=== PATIENT | female | born 1945 | race Caucasian/White ===

== ENCOUNTER → 2018-02-10 | Outpatient (CLI) | payer OTHER ==
[~2018-02-10] MED LIST: ACTONEL; ALBIPROI; ALBU90I INH; ALBU90OI6; AMLO10; AMLO10 PO; AMLO5; ATOR20; BENZ100A PO; BRINOPSU; BRINOPSU OD; BUPR75 PO; BUSP15; BUSP5 PO; CARV6.25; CARV6.25 PO; CITA20; CLINDAMYCIN PHO; CLON.2; CLOP75 PO; DIAZ5; DIAZ5 PO; DIPH50; DIPH50 PO; DOCSEN; DORZOPSO; DULO60; ENAL20; ENAL20 PO; FLUSAL2505; FLUSAL2505 IH; FLUSAL5005; FLUT.05NI; FURO20; FURO40; GABA300; HYDACE5 PO; HYDR1TAB94; IBUP600 PO; LIDO5TP TOP; MONT10T; MONT10T PO; MORP30; MORP30 PO; NIFE60ER; NITR.6SL; OMEP20ER; OMEP20ER PO; OXYGEN; PANT40; PIRO20; PRED20 PO; Prednisone20 MG PO; QUETIAPINE FUMA50 MG; RISE35; SENN187; SENNP; TIMDOROPSO; TIOT18; TRAM50; TRAV.004OP; TRAV.004OP OD; TRIHYD253A; TRIHYD253B; TUDORZA PRESS400 MCG; Valium5 MG PO; Ventolin Soln3 ML INH; Zithromax250 MG PO; Zofran Odt4 MG PO
== END ==
LOC: LAB SHORT 13:34 → LAB EV 13:34
DX: R10.12 Left upper quadrant pain (principal)
CPT/HCPCS: 87086

== ENCOUNTER → 2018-09-13 | Outpatient (CLI) | payer OTHER ==
[~2018-09-13] MED LIST changes: +ALPR.5 PO; +Isosorbide Mono30 MG PO; +MOTION RELIEF25 MG PO; +Micro-K10 MEQ; +TIOT18 INH
[2018-09-13 12:48] LABS: BASOPHILS ABSOLUTE AUTO 0.02 K/mm3 (0.00-0.23); BASOPHILS PERCENT AUTO 0 % (0-2); EOSINOPHILS ABSOLUTE AUTO 0.07 K/mm3 (0.00-0.68); EOSINOPHILS PERCENT AUTO 1 % (0-6); Hematocrit 35.2 % (33.0-51.0); Hemoglobin 11.4 g/dL (11.5-16.0); IMMATURE GRAN ABSOLUTE AUTO 0.01 K/mm3 (0.00-0.10); IMMATURE GRAN PERCENT AUTO 0 % (0-1); LYMPHOCYTES PERCENT AUTO 31 % (21-46); MONOCYTES ABSOLUTE AUTO 0.49 K/mm3 (0.16-1.47); MONOCYTES PERCENT AUTO 8 % (4-13); Mean Corpuscular HGB Conc 32.4 g/dL (31.5-36.5); Mean Corpuscular Volume 83 fL (80-100); Mean Platelet Volume 10.6 fL (9.1-12.4); NEUTROPHILS PERCENT AUTO 60 % (41-73); Platelet Count 192 K/mm3 (150-400); RDW Coefficient Variation 14.8 % (11.7-14.2); RDW Standard Deviation 44.6 fL (35.1-46.3); Red Blood Cell Count 4.22 M/mm3 (3.80-5.20); White Blood Cell Count 6.49 K/mm3 (4.00-11.30)
[2018-09-13 12:59] LABS: Alanine Aminotransfer (ALT/SGP 20 U/L (12-78); Albumin, Blood 3.4 g/dL (3.4-5.0); Albumin/Globulin Ratio 0.9 (0.8-1.8); Alk Phos 89 U/L (40-126); Anion Gap 9 mmol/L (6-16); Aspartate Aminotrans (AST/SGOT 13 U/L (12-37); Bilirubin, Total 0.5 mg/dL (0.1-1.0); Blood Urea Nitrogen 11 mg/dL (8-24); Bun/Creatinine Ratio 13.9 (12.0-20.0); CO2, Blood 28 mmol/L (21-32); Calcium, Blood 8.6 mg/dL (8.5-10.1); Chloride, Blood 104 mmol/L (98-108); Creatinine, Blood 0.79 mg/dL (0.40-1.00); Globulin, Blood 3.7 g/dL (2.2-4.0); Glomerular Filtration Rate >60 (60-); Glucose, Blood 93 mg/dL (70-99); Potassium, Blood 3.6 mmol/L (3.5-5.5); Sodium, Blood 141 mmol/L (136-145); Total Protein, Blood 7.1 g/dL (6.4-8.2)
== END | disposition home or self-care (01) ==
LOC: LAB EV 12:45 → LAB SHORT 12:45
PROVIDERS: Physician Assistant
DX: R00.2 Palpitations (principal); R06.02 Shortness of breath
CPT/HCPCS: 80053; 83880; 85025

== ENCOUNTER 2018-09-30 12:20 | Emergency (ER) | payer OTHER ==
[~2018-09-30] VITALS: Ht 157.5 cm; Wt 66.7 kg
[~2018-09-30 12:20] MED LIST changes: -ALPR.5 PO; -Isosorbide Mono30 MG PO; -MOTION RELIEF25 MG PO; -Micro-K10 MEQ; -TIOT18 INH
[2018-09-30 13:01] LABS: BASOPHILS ABSOLUTE AUTO 0.02 K/mm3 (0.00-0.23); BASOPHILS PERCENT AUTO 0 % (0-2); EOSINOPHILS ABSOLUTE AUTO 0.07 K/mm3 (0.00-0.68); EOSINOPHILS PERCENT AUTO 1 % (0-6); Hematocrit 37.7 % (33.0-51.0); Hemoglobin 11.7 g/dL (11.5-16.0); IMMATURE GRAN ABSOLUTE AUTO 0.01 K/mm3 (0.00-0.10); IMMATURE GRAN PERCENT AUTO 0 % (0-1); LYMPHOCYTES ABSOLUTE AUTO 2.29 K/mm3 (0.84-5.20); LYMPHOCYTES PERCENT AUTO 29 % (21-46); MONOCYTES ABSOLUTE AUTO 0.62 K/mm3 (0.16-1.47); MONOCYTES PERCENT AUTO 8 % (4-13); Mean Corpuscular HGB 26.1 pg (26.0-34.0); Mean Corpuscular Volume 84 fL (80-100); Mean Platelet Volume 10.9 fL (9.1-12.4); NEUTROPHILS ABSOLUTE AUTO 4.97 K/mm3 (1.96-9.15); NEUTROPHILS PERCENT AUTO 62 % (41-73); Platelet Count 277 K/mm3 (150-400); RDW Coefficient Variation 14.8 % (11.7-14.2); RDW Standard Deviation 45.1 fL (35.1-46.3); Red Blood Cell Count 4.48 M/mm3 (3.80-5.20); White Blood Cell Count 7.98 K/mm3 (4.00-11.30)
[2018-09-30 13:08] LABS: Alanine Aminotransfer (ALT/SGP 16 U/L (12-78); Albumin, Blood 3.4 g/dL (3.4-5.0); Alk Phos 86 U/L (50-136); Anion Gap 7 mmol/L (6-16); Aspartate Aminotrans (AST/SGOT 14 U/L (12-37); Bilirubin, Total 0.7 mg/dL (0.1-1.0); Blood Urea Nitrogen 22 mg/dL (8-24); Bun/Creatinine Ratio 30.6 (12.0-20.0); CO2, Blood 24 mmol/L (21-32); Calcium, Blood 8.3 mg/dL (8.5-10.1); Chloride, Blood 105 mmol/L (98-108); Creatinine, Blood 0.72 mg/dL (0.40-1.00); Globulin, Blood 3.5 g/dL (2.2-4.0); Glomerular Filtration Rate >60 (60-); Glucose, Blood 121 mg/dL (70-99); Potassium, Blood 4.4 mmol/L (3.5-5.5); Sodium, Blood 136 mmol/L (136-145); Total Protein, Blood 6.9 g/dL (6.4-8.2); Troponin I <0.015 ng/mL (0.000-0.040)
[2018-09-30] MEDS ORDERED: Isosorbide Mono30 MG PO (13:50)
[2018-09-30] MEDS ORDERED: MOTION RELIEF25 MG PO (14:41)
[2018-09-30] MEDS ORDERED: Micro-K10 MEQ (14:42)
[2018-09-30] MEDS ORDERED: TIOT18 INH (14:43)
[2018-09-30] MEDS ORDERED: ALPR.5 PO (14:43)
== END 2018-09-30 14:45 | disposition home or self-care (01) ==
LOC: ER 12:20
PROVIDERS: Physician Assistant
DX: I95.9 Hypotension, unspecified (principal); J44.9 Chronic obstructive pulmonary disease, unspecified; Z88.5 Allergy status to narcotic agent; F17.210 Nicotine dependence, cigarettes, uncomplicated; Z79.899 Other long term (current) drug therapy
CPT/HCPCS: 36415; 71046; 80053; 83880; 84484; 85025; 93005; 93010; 96374; 99284-25; J2405; J7030

== ENCOUNTER → 2018-12-15 | Outpatient (CLI) | payer OTHER ==
[~2018-12-15] MED LIST changes: +ALPR.5 PO; +Isosorbide Mono30 MG PO; +MOTION RELIEF25 MG PO; +Micro-K10 MEQ; +TIOT18 INH
== END | disposition home or self-care (01) ==
LOC: LAB EV 12:00 → LAB SHORT 12:00
DX: N39.0 Urinary tract infection, site not specified (principal)
CPT/HCPCS: 87086

== ENCOUNTER 2019-03-02 12:03 | Observation (INO) | payer OTHER ==
[~2019-03-02] VITALS: Ht 157.5 cm; Wt 72.0 kg
[~2019-03-02 12:03] MED LIST changes: -ATOR20; +ATOR20 PO; +CLON.2 PO; +DULO60 PO; +FURO20 PO; -FURO40; -GABA300; +GABA300 PO; -Isosorbide Mono30 MG PO; -Micro-K10 MEQ; +Micro-K10 MEQ PO; +NIFE30ER PO; -NITR.6SL; +Nitroglycerin0.4 MG SL; -PANT40; +PANT40 PO; -QUETIAPINE FUMA50 MG; +QUETIAPINE FUMA50 MG PO
[2019-03-02 12:28] LABS: BASOPHILS PERCENT AUTO 0 % (0-2); EOSINOPHILS ABSOLUTE AUTO 0.09 K/mm3 (0.00-0.68); EOSINOPHILS PERCENT AUTO 1 % (0-6); Hematocrit 33.9 % (33.0-51.0); Hemoglobin 10.8 g/dL (11.5-16.0); IMMATURE GRAN ABSOLUTE AUTO 0.05 K/mm3 (0.00-0.10); IMMATURE GRAN PERCENT AUTO 0 % (0-1); LYMPHOCYTES ABSOLUTE AUTO 1.88 K/mm3 (0.84-5.20); LYMPHOCYTES PERCENT AUTO 16 % (21-46); MONOCYTES ABSOLUTE AUTO 0.63 K/mm3 (0.16-1.47); MONOCYTES PERCENT AUTO 5 % (4-13); Mean Corpuscular HGB 26.6 pg (26.0-34.0); Mean Corpuscular HGB Conc 31.9 g/dL (31.5-36.5); Mean Corpuscular Volume 84 fL (80-100); Mean Platelet Volume 10.6 fL (9.1-12.4); NEUTROPHILS ABSOLUTE AUTO 8.96 K/mm3 (1.96-9.15); NEUTROPHILS PERCENT AUTO 77 % (41-73); Platelet Count 186 K/mm3 (150-400); RDW Coefficient Variation 17.9 % (11.7-14.2); RDW Standard Deviation 54.4 fL (35.1-46.3); Red Blood Cell Count 4.06 M/mm3 (3.80-5.20); White Blood Cell Count 11.61 K/mm3 (4.00-11.30)
[2019-03-02 12:53] LABS: Troponin I <0.015 ng/mL (0.000-0.040)
[2019-03-02 12:54] LABS: Alanine Aminotransfer (ALT/SGP 20 U/L (12-78); Albumin, Blood 2.8 g/dL (3.4-5.0); Alk Phos 58 U/L (50-136); Anion Gap 5 mmol/L (6-16); Aspartate Aminotrans (AST/SGOT <3 U/L (12-37); Bilirubin, Total 0.5 mg/dL (0.1-1.0); Blood Urea Nitrogen 21 mg/dL (8-24); Bun/Creatinine Ratio 26.2 (12.0-20.0); CO2, Blood 30 mmol/L (21-32); Calcium, Blood 8.1 mg/dL (8.5-10.1); Chloride, Blood 104 mmol/L (98-108); Globulin, Blood 2.7 g/dL (2.2-4.0); Glomerular Filtration Rate >60 (60-); Glucose, Blood 138 mg/dL (70-99); Potassium, Blood 3.6 mmol/L (3.5-5.5); Sodium, Blood 139 mmol/L (136-145); Total Protein, Blood 5.5 g/dL (6.4-8.2)
[2019-03-02] MEDS ORDERED: LISI20 PO (14:08)
[2019-03-02 14:09] LABS: Source, Urine Clean Catch
[2019-03-02] MEDS ORDERED: CLOP75 PO (14:10)
[2019-03-02 14:11] LABS: Blood, Urine Neg (Neg); Glucose Qualitative, Urine Neg (Neg); Ketones, Urine 1+ (Neg); Leukocyte Esterase, Urine 2+ (Neg); Nitrite, Urine Neg (Neg); Protein, Urine 2+ (Neg); Urobilinogen, Urine 2+ (Normal)
[2019-03-02] MEDS ORDERED: SPIR25 PO (14:11)
[2019-03-02] MEDS ORDERED: Neurontin 300300 MG PO (14:14)
[2019-03-02] MEDS ORDERED: BREO ELLIPTA 11 EACH INH (14:26)
[2019-03-02 14:30] LABS: Appearance, Urine Hazy (Clear); Bilirubin, Urine 2+ (Neg); Color, Urine Yellow (P-Yellow)
[2019-03-02 14:34] LABS: Bacteria Few /hpf; Squamous Epithelial Cells Mod /hpf (Few)
[2019-03-02 14:36] LABS: Amorphous Mod (0-Heavy); Calcium Oxalate Crystals Mod /hpf; Hyaline Casts TNTC /lpf (0-2); Mucus Mod (0-Heavy)
[2019-03-02] MEDS ORDERED: PRED10 PO (15:44)
[2019-03-02] MEDS ORDERED: Isosorbide Mono30 MG PO (15:51)
--- NOTE | 2019-03-02 16:15 | NUR ---
REC'D REPORT FROM JAMIE ED RN. PT ARRIVED TO PCU 1 VIA GURNEY. ALERT AND ORIENTED X 4. LUNGS CLEAR, DIMINISHED AT THE BASES, ROOM AIR SATS 97%. SB ON TELEMETRY, HR 48-55, ASYMPTOMATIC. BP STABLE. DENIES DIZZINESS AND N/V. BOWEL TONES X 4, NORMOACTIVE, DENIES NAUSEA AND VOMITING. VOIDS PER BEDSIDE COMMODE. RECEIVED NS 1L IN THE ED. SKIN INTACT. LEFT HAND/WRIST AREA IV SALINE LOCKED. FAMILY AT [facility].
--- NOTE | 2019-03-03 03:00 | NUR ---
LATE ENTRY [id number] ASSUMED CARE OF PATIENT FROM MARBIN RAO. PATIENT A/O, ABLE TO MAKE NEEDS KNOWN. 1P ASSIST TO BATHROOM. WCTM THROUGHOUT THE SHIFT.
[2019-03-03 03:56] LABS: BASOPHILS PERCENT AUTO 0 % (0-2); EOSINOPHILS PERCENT AUTO 0 % (0-6); Hematocrit 34.3 % (33.0-51.0); Hemoglobin 10.8 g/dL (11.5-16.0); IMMATURE GRAN ABSOLUTE AUTO 0.07 K/mm3 (0.00-0.10); IMMATURE GRAN PERCENT AUTO 1 % (0-1); LYMPHOCYTES ABSOLUTE AUTO 1.21 K/mm3 (0.84-5.20); LYMPHOCYTES PERCENT AUTO 13 % (21-46); MONOCYTES ABSOLUTE AUTO 0.49 K/mm3 (0.16-1.47); MONOCYTES PERCENT AUTO 5 % (4-13); Mean Corpuscular HGB 26.6 pg (26.0-34.0); Mean Corpuscular HGB Conc 31.5 g/dL (31.5-36.5); Mean Corpuscular Volume 85 fL (80-100); Mean Platelet Volume 11.1 fL (9.1-12.4); NEUTROPHILS ABSOLUTE AUTO 7.24 K/mm3 (1.96-9.15); NEUTROPHILS PERCENT AUTO 80 % (41-73); Platelet Count 175 K/mm3 (150-400); RDW Coefficient Variation 17.8 % (11.7-14.2); RDW Standard Deviation 54.7 fL (35.1-46.3); Red Blood Cell Count 4.06 M/mm3 (3.80-5.20); White Blood Cell Count 9.01 K/mm3 (4.00-11.30)
[2019-03-03 04:32] LABS: Magnesium, Blood 2.3 mg/dL (1.6-2.4)
[2019-03-03 04:42] LABS: Alanine Aminotransfer (ALT/SGP 16 U/L (12-78); Albumin, Blood 2.8 g/dL (3.4-5.0); Alk Phos 63 U/L (50-136); Anion Gap 3 mmol/L (6-16); Aspartate Aminotrans (AST/SGOT 11 U/L (12-37); Bilirubin, Total 0.5 mg/dL (0.1-1.0); Blood Urea Nitrogen 17 mg/dL (8-24); Bun/Creatinine Ratio 22.1 (12.0-20.0); CO2, Blood 29 mmol/L (21-32); Calcium, Blood 8.5 mg/dL (8.5-10.1); Chloride, Blood 105 mmol/L (98-108); Creatinine, Blood 0.77 mg/dL (0.40-1.00); Globulin, Blood 2.9 g/dL (2.2-4.0); Glomerular Filtration Rate >60 (60-); Glucose, Blood 163 mg/dL (70-99); Potassium, Blood 4.2 mmol/L (3.5-5.5); Sodium, Blood 137 mmol/L (136-145); Total Protein, Blood 5.7 g/dL (6.4-8.2)
--- NOTE | 2019-03-03 04:46 | NUR ---
SHIFT SUMMARY A/O, ABLE TO MAKE NEEDS KNOWN. COOPERATIVE WITH CARE. ANSWERS QUESTIONS APPROPRIATELY. UP WITH SBA TO BATHROOM; GAIT APPEARS STEADY. HAS NOT HAD ANY C/O DIZZINESS. NO C/O PAIN/DISCOMFORT. APPEARED TO REST FOR A SHORT TIME DURING THE EARLY HOURS. NO ACUTE CHANGES OVERNIGHT. HYERPTENSIVE THIS AM; ALL OTHER VS WNL. AFEBRILE. BED IN LOWEST POSITON. CALL LIGHT AND BELONGINGS WITHIN REACH. WCTM. REPORT TO ONCOMING RN.
--- NOTE | 2019-03-03 08:15 | NUR ---
INITIAL ASSESSMENT: PT IS SITTING UP IN BED VISITING WITH FAMILY. PT IS ALERT AND OX3. PT DENIES REPORTS SHE IS STARTING TO GET A "LITTLE BIT OF A HEADACHE." PT RATES THIS AT A 3/10. HRR, SINUS LIDIA AT 56 PER TELEMETRY. LS DIM T/O. BIOX WNL ON RA. PT HAS DRY NPC, PT WAS PREVIOUSLY A PACK A DAY SMOKER. NICOTINE PATCH IN PLACE. BT+. PPP. BP HIGH, DR. BAUMAN IS AT ROOM-NOTIFIED, SEE NEW ORDERS. OTHER VSS. PT DENIES OTHER NEEDS AT THIS TIME. CALL LIGHT IN REACH, WILL CONTINUE TO MONTIOR.
--- NOTE | 2019-03-03 10:34 | NUR ---
PT'S HEADACHE IS DOING BETTER. SHE HAS BEEN AMBULATING IN THE HALLS WITHOUT DIZZINESS OR FAINTING. PT WAS ABLE TO TAKE A SHOWER AND STATES SHE IS FEELING BETTER.
--- NOTE | 2019-03-03 12:00 | NUR ---
PT IS RESTING COMFORTABLY IN BED WATCHING TV. BP STILL A LITTLE HIGH, MD NOTIFIED. SEE NEW ORDERS. REPORT GIVEN TO SARIAH ZAZUETA.
--- NOTE | 2019-03-03 12:39 | NUR ---
ASSUMED CARE OF PATIENT AT THIS TIME. NO CHANGES IN PREVIOUS TOXICOLOGY TEACHER. BP REMAINS ELEVATED BUT SLIGHTLY IMPROVED. SECOND DOSE OF LISINOPRIL ADMINISTERED PER ORDER AND WILL REASSESS FOR EFFECTIVENESS.
--- NOTE | 2019-03-03 13:38 | NUR ---
BP REMAINS ELEVATED. NOTIFIED DR BAUMAN WHO WILL PLACE NEW ORDERS.
[2019-03-03] MEDS ORDERED: NICO21TP TOP (17:15)
--- NOTE | 2019-03-03 17:40 | NUR ---
DICUSSED DISCHARGE INSTRUCTIONS WITH PATIENT AND DAUGHTER. PATIENT REPORTS NO CONCERNS OR QUESTIONS.
== END 2019-03-03 17:56 | disposition home or self-care (01) ==
LOC: ER 12:03 → PCU 12:04 → ER 13:40 → PCU 13:40
PROVIDERS: Emergency Medicine; ADMIT Student in an Organized Health Care Education/Training Program
DX: I95.2 Hypotension due to drugs (principal); R00.1 Bradycardia, unspecified; T50.905A Adverse effect of unspecified drugs, medicaments and biological substances, initial encounter; D72.829 Elevated white blood cell count, unspecified; I10 Essential (primary) hypertension; J44.9 Chronic obstructive pulmonary disease, unspecified; E78.5 Hyperlipidemia, unspecified; G47.33 Obstructive sleep apnea (adult) (pediatric); F17.200 Nicotine dependence, unspecified, uncomplicated; Z88.5 Allergy status to narcotic agent; Z88.8 Allergy status to other drugs, medicaments and biological substances; Z79.899 Other long term (current) drug therapy; Z79.52 Long term (current) use of systemic steroids
CPT/HCPCS: 36415; 80053; 81001; 83735; 84145; 84484; 85025; 87086; 93005; 93010; 94640; 94760; 99285-25; A9270; G0378; J1650; J2920; J7030

== ENCOUNTER → 2019-08-09 | Outpatient (CLI) | payer OTHER ==
[~2019-08-09] MED LIST changes: +BREO ELLIPTA 11 EACH INH; +Isosorbide Mono30 MG PO; +LISI20 PO; +NICO21TP TOP; +Neurontin 300300 MG PO; +PRED10 PO; +SPIR25 PO
== END ==
LOC: LAB EV 13:08 → LAB SHORT 13:08
DX: N39.0 Urinary tract infection, site not specified (principal)
CPT/HCPCS: 87086

== ENCOUNTER 2019-11-18 12:32 | Emergency (ER) | payer OTHER ==
[~2019-11-18] VITALS: Ht 157.5 cm; Wt 69.0 kg
[2019-11-18 13:16] LABS: BASOPHILS ABSOLUTE AUTO 0.03 K/mm3 (0.00-0.23); BASOPHILS PERCENT AUTO 0 % (0-2); EOSINOPHILS PERCENT AUTO 1 % (0-6); Hematocrit 44.7 % (33.0-51.0); Hemoglobin 14.3 g/dL (11.5-16.0); IMMATURE GRAN ABSOLUTE AUTO 0.02 K/mm3 (0.00-0.10); IMMATURE GRAN PERCENT AUTO 0 % (0-1); LYMPHOCYTES ABSOLUTE AUTO 2.38 K/mm3 (0.84-5.20); LYMPHOCYTES PERCENT AUTO 27 % (21-46); MONOCYTES ABSOLUTE AUTO 0.65 K/mm3 (0.16-1.47); MONOCYTES PERCENT AUTO 7 % (4-13); Mean Corpuscular Volume 85 fL (80-100); Mean Platelet Volume 10.8 fL (9.1-12.4); NEUTROPHILS ABSOLUTE AUTO 5.58 K/mm3 (1.96-9.15); NEUTROPHILS PERCENT AUTO 64 % (41-73); Platelet Count 238 K/mm3 (150-400); RDW Coefficient Variation 14.6 % (11.7-14.2); Red Blood Cell Count 5.29 M/mm3 (3.80-5.20); White Blood Cell Count 8.76 K/mm3 (4.00-11.30)
[2019-11-18 13:27] LABS: Troponin I <0.015 ng/mL (0.000-0.040)
[2019-11-18 13:28] LABS: Alanine Aminotransfer (ALT/SGP 30 U/L (12-78); Albumin, Blood 3.3 g/dL (3.4-5.0); Albumin/Globulin Ratio 0.8 (0.8-1.8); Alk Phos 101 U/L (50-136); Anion Gap 6 mmol/L (6-16); Aspartate Aminotrans (AST/SGOT 17 U/L (12-37); Bilirubin, Total 0.5 mg/dL (0.1-1.0); Blood Urea Nitrogen 19 mg/dL (8-24); Bun/Creatinine Ratio 23.9 (12.0-20.0); CO2, Blood 26 mmol/L (21-32); Chloride, Blood 107 mmol/L (98-108); Creatinine, Blood 0.79 mg/dL (0.40-1.00); Globulin, Blood 3.9 g/dL (2.2-4.0); Glomerular Filtration Rate >60 (60-); Glucose, Blood 89 mg/dL (70-99); Potassium, Blood 4.1 mmol/L (3.5-5.5); Sodium, Blood 139 mmol/L (136-145); Total Protein, Blood 7.2 g/dL (6.4-8.2)
[2019-11-18] MEDS ORDERED: POTCHL20ER PO (13:29)
[2019-11-18] MEDS ORDERED: Catapres0.2 MG PO (13:31)
[2019-11-18] MEDS ORDERED: HYDCHL25 PO (13:31)
[2019-11-18] MEDS ORDERED: GABA300 PO (13:31)
[2019-11-18] MEDS ORDERED: CARV25 PO (13:32)
[2019-11-18] MEDS ORDERED: Aspirin EC81 MG PO (14:02)
== END 2019-11-18 16:51 | disposition home or self-care (01) ==
LOC: ER 12:32
PROVIDERS: Emergency Medicine
DX: I10 Essential (primary) hypertension (principal); I48.91 Unspecified atrial fibrillation; R51 Headache; M19.90 Unspecified osteoarthritis, unspecified site; M79.7 Fibromyalgia; E78.5 Hyperlipidemia, unspecified; I73.9 Peripheral vascular disease, unspecified; J44.9 Chronic obstructive pulmonary disease, unspecified; G47.30 Sleep apnea, unspecified; Z88.5 Allergy status to narcotic agent; Z88.8 Allergy status to other drugs, medicaments and biological substances; Z79.51 Long term (current) use of inhaled steroids; Z79.899 Other long term (current) drug therapy; F17.200 Nicotine dependence, unspecified, uncomplicated
CPT/HCPCS: 36415; 70450; 80053; 83735; 84484; 85025; 93005; 93010; 99284-25

== ENCOUNTER 2020-12-17 18:37 | Inpatient (IN) | payer OTHER ==
[~2020-12-17] VITALS: Ht 157.5 cm; Wt 70.0 kg
[~2020-12-17 18:37] MED LIST changes: -ATOR20 PO; +Aspirin EC81 MG PO; -DULO60 PO; +HYDCHL25 PO
[2020-12-17 19:18] LABS: BASOPHILS ABSOLUTE AUTO 0.01 K/mm3 (0.00-0.23); BASOPHILS PERCENT AUTO 0 % (0-2); EOSINOPHILS ABSOLUTE AUTO 0.07 K/mm3 (0.00-0.68); EOSINOPHILS PERCENT AUTO 1 % (0-6); IMMATURE GRAN ABSOLUTE AUTO 0.05 K/mm3 (0.00-0.10); IMMATURE GRAN PERCENT AUTO 1 % (0-1); LYMPHOCYTES ABSOLUTE AUTO 2.77 K/mm3 (0.84-5.20); LYMPHOCYTES PERCENT AUTO 28 % (21-46); MONOCYTES PERCENT AUTO 10 % (4-13); Mean Corpuscular HGB 24.3 pg (26.0-34.0); Mean Corpuscular Volume 81 fL (80-100); Mean Platelet Volume 10.5 fL (9.1-12.4); NEUTROPHILS ABSOLUTE AUTO 6.03 K/mm3 (1.96-9.15); NEUTROPHILS PERCENT AUTO 61 % (41-73); NRBC ABSOLUTE 0.28 K/mm3 (0.00-0.02); NRBC Auto 2.8 /100 WBC (0.0-0.2); Platelet Count 283 K/mm3 (150-400); RDW Coefficient Variation 19.6 % (11.7-14.2); RDW Standard Deviation 56.9 fL (35.1-46.3); Red Blood Cell Count 1.73 M/mm3 (3.80-5.20); White Blood Cell Count 9.93 K/mm3 (4.00-11.30)
[2020-12-17 19:29] LABS: Alanine Aminotransfer (ALT/SGP 19 U/L (12-78); Albumin, Blood 2.7 g/dL (3.4-5.0); Albumin/Globulin Ratio 0.9 (0.8-1.8); Alk Phos 95 U/L (50-136); Anion Gap 5 mmol/L (6-16); Aspartate Aminotrans (AST/SGOT 16 U/L (12-37); Bilirubin, Total 0.4 mg/dL (0.1-1.0); Blood Urea Nitrogen 46 mg/dL (8-24); Bun/Creatinine Ratio 52.3 (12.0-20.0); CO2, Blood 25 mmol/L (21-32); Calcium, Blood 8.7 mg/dL (8.5-10.1); Chloride, Blood 106 mmol/L (98-108); Creatinine, Blood 0.88 mg/dL (0.40-1.00); Globulin, Blood 3.1 g/dL (2.2-4.0); Glomerular Filtration Rate >60 (60-); Glucose, Blood 94 mg/dL (70-99); Potassium, Blood 4.7 mmol/L (3.5-5.5); Sodium, Blood 136 mmol/L (136-145); Total Protein, Blood 5.8 g/dL (6.4-8.2)
[2020-12-17 19:30] LABS: Hemoglobin 4.2 g/dL (11.5-16.0)
[2020-12-17] MEDS ORDERED: HYDR100 PO (21:34)
[2020-12-17] MEDS ORDERED: DULO60 PO (21:52)
[2020-12-17] MEDS ORDERED: GABA300 PO ×2 (21:52→21:53)
[2020-12-17] MEDS ORDERED: ALEN70 PO (21:53)
[2020-12-17] MEDS ORDERED: XARELTO20 MG PO (21:54)
[2020-12-17] MEDS ORDERED: POTA10T PO (21:54)
[2020-12-17] MEDS ORDERED: ATOR20 PO (21:54)
[2020-12-17] MEDS ORDERED: DYAZIDE 37.5-21 EACH PO (21:55)
[2020-12-17] MEDS ORDERED: Buspirone HCl15 MG PO (21:55)
[2020-12-17] MEDS ORDERED: Catapres0.2 MG PO (21:56)
[2020-12-17] MEDS ORDERED: Amlodipine Bes2.5 MG PO (21:56)
[2020-12-17] MEDS ORDERED: CARV25 PO (21:57)
[2020-12-17] MEDS ORDERED: Ventolin/Prove6.7 GM INH (22:00)
[2020-12-17] MEDS ORDERED: BREO ELLIPTA 11 EAC1 INH (22:00)
[2020-12-17 22:52] LABS: Source, Urine Voided
[2020-12-17 22:59] LABS: Bilirubin, Urine Neg (Neg); Blood, Urine 1+ (Neg); Glucose Qualitative, Urine Neg (Neg); Ketones, Urine Neg (Neg); Leukocyte Esterase, Urine 2+ (Neg); Nitrite, Urine Neg (Neg); Protein, Urine Neg (Neg); Urobilinogen, Urine NORM (Normal)
[2020-12-17 23:04] LABS: Appearance, Urine Clear (Clear); Color, Urine Yellow (P-Yellow)
[2020-12-17 23:05] LABS: Bacteria Many /hpf; Red Blood Cells, Urine 0-2 /hpf (0-2); Squamous Epithelial Cells Few /hpf (Few)
[2020-12-18 00:13] LABS: Hematocrit 15.9 % (33.0-51.0); Hemoglobin 4.8 g/dL (11.5-16.0)
[2020-12-18 06:06] LABS: BASOPHILS ABSOLUTE AUTO 0.03 K/mm3 (0.00-0.23); BASOPHILS PERCENT AUTO 0 % (0-2); EOSINOPHILS ABSOLUTE AUTO 0.09 K/mm3 (0.00-0.68); EOSINOPHILS PERCENT AUTO 1 % (0-6); Hematocrit 21.1 % (33.0-51.0); Hemoglobin 6.7 g/dL (11.5-16.0); IMMATURE GRAN ABSOLUTE AUTO 0.05 K/mm3 (0.00-0.10); IMMATURE GRAN PERCENT AUTO 1 % (0-1); LYMPHOCYTES ABSOLUTE AUTO 2.38 K/mm3 (0.84-5.20); LYMPHOCYTES PERCENT AUTO 28 % (21-46); MONOCYTES ABSOLUTE AUTO 0.85 K/mm3 (0.16-1.47); MONOCYTES PERCENT AUTO 10 % (4-13); Mean Corpuscular HGB Conc 31.8 g/dL (31.5-36.5); Mean Corpuscular Volume 82 fL (80-100); Mean Platelet Volume 10.2 fL (9.1-12.4); NEUTROPHILS ABSOLUTE AUTO 5.13 K/mm3 (1.96-9.15); NEUTROPHILS PERCENT AUTO 60 % (41-73); NRBC ABSOLUTE 0.23 K/mm3 (0.00-0.02); NRBC Auto 2.7 /100 WBC (0.0-0.2); Platelet Count 248 K/mm3 (150-400); RDW Coefficient Variation 17.9 % (11.7-14.2); RDW Standard Deviation 53.8 fL (35.1-46.3); Red Blood Cell Count 2.58 M/mm3 (3.80-5.20); White Blood Cell Count 8.53 K/mm3 (4.00-11.30)
[2020-12-18 06:28] LABS: Alanine Aminotransfer (ALT/SGP 20 U/L (12-78); Albumin, Blood 2.7 g/dL (3.4-5.0); Albumin/Globulin Ratio 0.8 (0.8-1.8); Alk Phos 91 U/L (50-136); Anion Gap 5 mmol/L (6-16); Aspartate Aminotrans (AST/SGOT 13 U/L (12-37); Bilirubin, Total 0.7 mg/dL (0.1-1.0); Blood Urea Nitrogen 41 mg/dL (8-24); Bun/Creatinine Ratio 48.1 (12.0-20.0); CO2, Blood 25 mmol/L (21-32); Calcium, Blood 8.3 mg/dL (8.5-10.1); Chloride, Blood 108 mmol/L (98-108); Creatinine, Blood 0.85 mg/dL (0.40-1.00); Globulin, Blood 3.2 g/dL (2.2-4.0); Glomerular Filtration Rate >60 (60-); Glucose, Blood 93 mg/dL (70-99); Potassium, Blood 4.1 mmol/L (3.5-5.5); Sodium, Blood 138 mmol/L (136-145); Total Protein, Blood 5.9 g/dL (6.4-8.2)
[2020-12-18 17:11] LABS: Hematocrit 25.1 % (33.0-51.0)
[2020-12-19 08:42] LABS: Influenza A, PCR NEGATIVE (NEGATIVE); Influenza B, PCR NEGATIVE (NEGATIVE); Resp Syncytial Virus, PCR NEGATIVE (NEGATIVE); SARS-Cov-2 (COVID-19) PCR, MMC NEGATIVE (NEGATIVE)
[2020-12-19 12:43] LABS: Hematocrit 25.9 % (33.0-51.0); Hemoglobin 8.2 g/dL (11.5-16.0)
[2020-12-20] MEDS ORDERED: Seroquel Xr50 MG PO (14:28)
[2020-12-20] MEDS ORDERED: PANT40 PO (14:28)
== END 2020-12-20 15:15 | disposition home or self-care (01) | DRG 378 ==
LOC: ER 18:37 → PCU 18:38
PROVIDERS: Emergency Medicine; Internal Medicine; Internal Medicine Gastroenterology; ADMIT Internal Medicine
PROC: 30233N1 Transfusion of Nonautologous Red Blood Cells into Peripheral Vein, Percutaneous Approach (ICD-10-PCS; principal; 2020-12-17)
PROC: 0W3P8ZZ Control Bleeding in Gastrointestinal Tract, Via Natural or Artificial Opening Endoscopic (ICD-10-PCS; 2020-12-19)
DX: K31.811 Angiodysplasia of stomach and duodenum with bleeding (principal); D62 Acute posthemorrhagic anemia; I10 Essential (primary) hypertension; M19.90 Unspecified osteoarthritis, unspecified site; M79.7 Fibromyalgia; Z66 Do not resuscitate; I73.9 Peripheral vascular disease, unspecified; J44.9 Chronic obstructive pulmonary disease, unspecified; E78.5 Hyperlipidemia, unspecified; K21.9 Gastro-esophageal reflux disease without esophagitis; I25.10 Atherosclerotic heart disease of native coronary artery without angina pectoris; K58.2 Mixed irritable bowel syndrome; G47.33 Obstructive sleep apnea (adult) (pediatric); I48.91 Unspecified atrial fibrillation; G62.9 Polyneuropathy, unspecified; G89.29 Other chronic pain; F41.8 Other specified anxiety disorders; J30.9 Allergic rhinitis, unspecified; M81.0 Age-related osteoporosis without current pathological fracture; M54.9 Dorsalgia, unspecified; H40.9 Unspecified glaucoma; Z88.6 Allergy status to analgesic agent; Z88.5 Allergy status to narcotic agent; Z88.8 Allergy status to other drugs, medicaments and biological substances; Z90.49 Acquired absence of other specified parts of digestive tract; Z98.890 Other specified postprocedural states; Z90.710 Acquired absence of both cervix and uterus; Z87.891 Personal history of nicotine dependence; Z95.820 Peripheral vascular angioplasty status with implants and grafts; Z98.41 Cataract extraction status, right eye; Z79.82 Long term (current) use of aspirin; Z79.899 Other long term (current) drug therapy; Z79.01 Long term (current) use of anticoagulants; Z87.11 Personal history of peptic ulcer disease; Z86.16 Personal history of COVID-19; Z79.83 Long term (current) use of bisphosphonates
CPT/HCPCS: 0241U; 36415; 36430; 74177; 80053; 81001; 85014; 85018; 85025; 85730; 86850; 86900; 86901; 86923; 93005; 93010; 93975; 94640; 94760; 96365-59; 96375; 96376; 99285-25; A9270; A9270-GY; C9113; G0378; J2001; J2250; J2270; J2405; J2704; J3010; J7030; J7040; J7120; P9016; Q9967

== ENCOUNTER 2021-01-15 15:27 | Inpatient (IN) | payer OTHER, MEDICARE ==
[~2021-01-15] VITALS: Ht 157.5 cm; Wt 77.3 kg
[~2021-01-15 15:27] MED LIST changes: +ALEN70 PO; +ATOR20 PO; +Amlodipine Bes2.5 MG PO; +BREO ELLIPTA 11 EAC1 INH; +Buspirone HCl15 MG PO; +CARV25 PO; +Catapres0.2 MG PO; +DULO60 PO; +DYAZIDE 37.5-21 EACH PO; +HYDR100 PO; +POTA10T PO; +Seroquel Xr50 MG PO; +Ventolin/Prove6.7 GM INH; +XARELTO20 MG PO
[2021-01-15 18:20] LABS: BASOPHILS ABSOLUTE AUTO 0.02 K/mm3 (0.00-0.23); BASOPHILS PERCENT AUTO 0 % (0-2); EOSINOPHILS ABSOLUTE AUTO 0.09 K/mm3 (0.00-0.68); EOSINOPHILS PERCENT AUTO 1 % (0-6); Hematocrit 19.6 % (33.0-51.0); IMMATURE GRAN ABSOLUTE AUTO 0.02 K/mm3 (0.00-0.10); IMMATURE GRAN PERCENT AUTO 0 % (0-1); LYMPHOCYTES ABSOLUTE AUTO 1.99 K/mm3 (0.84-5.20); LYMPHOCYTES PERCENT AUTO 27 % (21-46); MONOCYTES ABSOLUTE AUTO 0.92 K/mm3 (0.16-1.47); MONOCYTES PERCENT AUTO 13 % (4-13); Mean Corpuscular HGB 21.2 pg (26.0-34.0); Mean Corpuscular HGB Conc 29.1 g/dL (31.5-36.5); Mean Corpuscular Volume 73 fL (80-100); Mean Platelet Volume 9.7 fL (9.1-12.4); NEUTROPHILS ABSOLUTE AUTO 4.34 K/mm3 (1.96-9.15); NEUTROPHILS PERCENT AUTO 59 % (41-73); NRBC ABSOLUTE 0.08 K/mm3 (0.00-0.02); NRBC Auto 1.1 /100 WBC (0.0-0.2); Platelet Count 306 K/mm3 (150-400); RDW Coefficient Variation 22.4 % (11.7-14.2); RDW Standard Deviation 58.4 fL (35.1-46.3); Red Blood Cell Count 2.69 M/mm3 (3.80-5.20); White Blood Cell Count 7.38 K/mm3 (4.00-11.30)
--- NOTE | 2021-01-15 18:25 | NUR ---
SHIFT SUMMARY PATIENT DIRECT ADMIT MID AFTERNOON. PATIENT TO RECEIVE 1 UNIT PRBC, AWAITING LAB. PATIENT ALERT AND ORIENTED, TRANSFERED TO THE BED FROM WHEELCHAIR WITH MINIMAL ASSIST. PATIENT ABLE TO PROVIDE MEDICAL HISTORY. PATIENT'S DAUGHTER IN THE ROOM FOR ADMISSION. PATIENT CURRENTLY SITTING UP IN BED WATCHING TELEVISION, NO NEEDS AT THIS TIME.
[2021-01-15 18:39] LABS: RETICULOCYTE COUNT PERCENT 2.43 % (0.50-2.50)
[2021-01-15 18:40] LABS: Hemoglobin 5.7 g/dL (11.5-16.0)
[2021-01-15 18:41] LABS: Percent Saturation 1.8 % (15.0-50.0)
[2021-01-15 22:53] LABS: Influenza A, PCR NEGATIVE (NEGATIVE); Influenza B, PCR NEGATIVE (NEGATIVE); Resp Syncytial Virus, PCR NEGATIVE (NEGATIVE); SARS-Cov-2 (COVID-19) PCR, MMC NEGATIVE (NEGATIVE)
[2021-01-16 05:14] LABS: BASOPHILS ABSOLUTE AUTO 0.03 K/mm3 (0.00-0.23); BASOPHILS PERCENT AUTO 0 % (0-2); EOSINOPHILS ABSOLUTE AUTO 0.08 K/mm3 (0.00-0.68); EOSINOPHILS PERCENT AUTO 1 % (0-6); Hematocrit 27.1 % (33.0-51.0); Hemoglobin 8.2 g/dL (11.5-16.0); IMMATURE GRAN ABSOLUTE AUTO 0.03 K/mm3 (0.00-0.10); IMMATURE GRAN PERCENT AUTO 0 % (0-1); LYMPHOCYTES ABSOLUTE AUTO 2.56 K/mm3 (0.84-5.20); LYMPHOCYTES PERCENT AUTO 32 % (21-46); MONOCYTES ABSOLUTE AUTO 0.98 K/mm3 (0.16-1.47); MONOCYTES PERCENT AUTO 12 % (4-13); Mean Corpuscular HGB 22.7 pg (26.0-34.0); Mean Corpuscular HGB Conc 30.3 g/dL (31.5-36.5); Mean Corpuscular Volume 75 fL (80-100); Mean Platelet Volume 10.2 fL (9.1-12.4); NEUTROPHILS ABSOLUTE AUTO 4.45 K/mm3 (1.96-9.15); NEUTROPHILS PERCENT AUTO 55 % (41-73); NRBC ABSOLUTE 0.11 K/mm3 (0.00-0.02); NRBC Auto 1.4 /100 WBC (0.0-0.2); Platelet Count 293 K/mm3 (150-400); RDW Coefficient Variation 20.4 % (11.7-14.2); RDW Standard Deviation 55.1 fL (35.1-46.3); Red Blood Cell Count 3.62 M/mm3 (3.80-5.20); White Blood Cell Count 8.13 K/mm3 (4.00-11.30)
--- NOTE | 2021-01-16 05:18 | NUR ---
SHIFT SUMMARY AOX4. VSS. RECIEVED 2U PRBC FOR HGB @5.7, HAS INCREASED TO 8.2. SLEPT WELL T/O NIGHT. REPORTS OCCASIONAL 7/10 SHARP LUQ ABD PAIN WHICH "TAKES MY BREATH AWAY", STATES REST, DEEP BREATHING & MASSAGING HELP & PAIN SUBSIDED WITHIN [address] CROWELL IN TO SEE PT LAST NIGHT, PLAN TO HAVE ENDOSCOPY THIS AFTERNOON & WILL BE NPO @NOON. CURRENTLY TOLERATING LIQUID DIET. NO EMESIS OR NAUSEA. REPORTS PASSING GAS & HAD BM 01/14/21. LUNGS HAVE EXP WHEEZES IN BASES, DENIES SOB @REST, SPO2 >90% ON RA, STATES SHE WEARS 2L @HS (BASELINE). CALL LIGHT IN REACH & PT ABLE TO MAKE NEEDS KNOWN. WILL MONITOR.
[2021-01-16 05:43] LABS: Anion Gap 6 mmol/L (6-16); Blood Urea Nitrogen 16 mg/dL (8-24); Bun/Creatinine Ratio 21.7 (12.0-20.0); CO2, Blood 27 mmol/L (21-32); Calcium, Blood 8.5 mg/dL (8.5-10.1); Chloride, Blood 104 mmol/L (98-108); Creatinine, Blood 0.74 mg/dL (0.40-1.00); Glomerular Filtration Rate >60 (60-); Glucose, Blood 102 mg/dL (70-99); Magnesium, Blood 2.2 mg/dL (1.6-2.4); Potassium, Blood 4.2 mmol/L (3.5-5.5); Sodium, Blood 137 mmol/L (136-145)
--- NOTE | 2021-01-16 15:30 | NUR ---
Upon receiving an admit referral for spiritual care, I visit patient. Patient tells me about the challenging day she had in that her Marshall, was brought into the hospital and then a couple of hours later she was brought into the hospital. She then talks about the family and how they are being pulled in many directions. She discusses her hopes about being able to do all the tests needed to determine the location of the bleed while in the hospital. She expresses her desire to not be readmitted again. I normalize patient's experience and provide therapeutic listening and prayer. Patietn responds well and shows signs of reduced stress. Spiritual care will remain available to patient and family.
--- NOTE | 2021-01-16 16:00 | NUR ---
PATIENT C/O SOB, IS QUITE VALLADARES. BP 170/95, HR >100, O2 SAT 91% ON RA. ASKED HER IF SHE WERE HAVING THESE SXS AT HOME WOULD SHE USE HER ALBUTEROL INHALER, SHE STATED YES. SPOKE TO DR. SIMMONS BY PHONE TO REPORT THESE SXS AND REQUEST BD PROTOCOL. RECEIVED TELEPHONE ORDER FOR BD PROTOCOL, STAT H/H AND BNP, AND PORT CXR.
--- NOTE | 2021-01-16 16:09 | NUR ---
ADMIT:01/15/21 DISCHARGE: DX: Anemia CC:kwilcox KARSTEN CALL: RESIDENCE: CAREGIVER:Darcy Gudino, Child, Marshall Harris [id number], Spouse / Partner, Yolanda PRYOR , Child, DX: HTN, CAD, CHF, Afib, see list DME: CPAP, O2 and equipment CCM: Referral-2019 HOME HEALTH: none SUMMARY: Admit: 01/15/21 01/16/21- Per chart review with Dr. Altamirano, pt is scheduled to have EGD with Dr. Ruano today. In spiritual care note, it is noted that pt's was also admitted into the hospital on the same day. -theresa
[2021-01-16 16:19] LABS: Hematocrit 26.2 % (33.0-51.0); Hemoglobin 8.2 g/dL (11.5-16.0)
--- NOTE | 2021-01-16 17:17 | NUR ---
WENT TO GET PATIENT FROM MEDICAL FLOOR. PATIENT BECAME VERY SHORT OF BREATH GETTING TO [facility] FROM BED. PLACED ON 02 AND AFTER PATIENT REGAINED BREATH TAKEN TO [facility] AND GIVEN RT TREATMENT . TALKED WITH DR GUARDADO WHO HAS AGREED TO EVALUATE PATIENT.
--- NOTE | 2021-01-16 17:37 | NUR ---
DR GUARDADO HERE TO EVALUATE PATINET AGREES WITH RN THAT PATIENT SHOULD BE DONE WITH ANNESTHESIA INFORMED DR CROWELL TO CALL DR MORA PER M PAPST OR STEAM AND POWER SUPERVISOR.
--- NOTE | 2021-01-16 18:09 | NUR ---
SHIFT SUMMARY: PT AT ENDOSCOPY AT THIS TIME. DENIED PAIN ALL SHIFT. BREATH SOUNDS DIM IN LLL WITH EXP WHEEZES THIS MORNING. RESP THX STATED HE HEARD NO WHEEZING SO BREATHING TREATMENT NOT GIVEN. BNP FOUND TO BE ELEVATED AT 973, H/H STABLE. RECEIVED ORDER FOR LASIX, WILL GIVE WHEN PT RETURNS. WEARS O2 @ 2 L/MIN NC AT HS ONLY. COMPLIANT WITH NPO AFTER NOON TODAY. GETTING UP TO BR WITH SBA ABD HER CANE. DAUGHTER AT BEDSIDE.
--- NOTE | 2021-01-16 19:22 | NUR ---
01/16/211921 Sinan Driscoll See Anesthesia record. Bite Block Placed. Patient to ENDO 1. History, Chart, Medications and Allergies reviewed before start of procedure. MONITOR INTACT WITH CONTINUOUS PULSE OXIMETRY AND INTERMITTENT BP.
--- NOTE | 2021-01-16 20:00 | NUR ---
ASSUMED CARE RECEIVED REPORT FROM MARBIN ANDERSON. PT ARRIVED TO FLOOR FROM [facility] AT 1999, NO ACUTE DISTRESS NOTED. POST-OP VS TAKEN, WNL. PT DENIES FEELINGS OF DIZZINESS, PAIN. LASIX IVP GIVEN ORDERED UPON RETURN TO FLOOR. PT DENIES NEEDS AT THIS TIME. CALL LIGHT, POSSESSIONS IN REACH, BED IN LOW POSITION WITH ALARMS ON.
--- NOTE | 2021-01-17 07:38 | NUR ---
NEWS TECHNICAL DIRECTOR SUMMARY PT RESTING, IN NO ACUTE DISTRESS. VS REVIEWED,WNL. PT COMPLETED PHASE 1 OF BOWEL PREP FOR COLONOSCOPY, STARTED PHASE 2 THIS AM. TOLERATING WELL, CONTINUES TO HAVE BLOOD IN BM'S, BUT APPEARS TO BE CLEARING SOME THIS AM. PT DENIES ABD CRAMPING OR DISCOMFORT. SLEPT ON AND OFF THROUGH THE NIGHT. REPORTS INCREASED EASE OF BREATHING THIS AM S/P LASIX ADMINISTRATION. NO ACUTE NEEDS ASSESSED AT THIS TIME. CALL LIGHT, POSSESSIONS IN REACH, BED IN LOW POSITION. BSC WITHIN REACH. REPORT GIVEN TO MARBIN ANDERSON.
--- NOTE | 2021-01-17 07:54 | NUR ---
SPOKE WITH PT'S DAUGHTER AUBREY BY PHONE, GAVE UPDATE ON PT'S CONDITION AND PLAN FOR TODAY.
--- NOTE | 2021-01-17 09:44 | NUR ---
Echocardiogram performed by Lizbeth Hendricks under my supervision.
[2021-01-17 13:53] LABS: Anion Gap 8 mmol/L (6-16); Blood Urea Nitrogen 10 mg/dL (8-24); CO2, Blood 29 mmol/L (21-32); Calcium, Blood 8.4 mg/dL (8.5-10.1); Chloride, Blood 100 mmol/L (98-108); Creatinine, Blood 0.72 mg/dL (0.40-1.00); Glomerular Filtration Rate >60 (60-); Glucose, Blood 98 mg/dL (70-99); Potassium, Blood 2.7 mmol/L (3.5-5.5); Sodium, Blood 137 mmol/L (136-145)
--- NOTE | 2021-01-17 14:35 | NUR ---
Patient is sitting on the EOB and alert. Patient speaks about the endoscopy she has had and that no bleed was located and that a colonscopy will most likely take place latter in this day. She talks about the family dynamics and her deep delmer in God. I provide pastoral risk reduction counselor and prayer. Patient responds well and voices appreciation for the visit.
--- NOTE | 2021-01-17 14:39 | NUR ---
01/17/21 1438 Jo Atwood History, Chart, Medications and Allergies reviewed before start of procedure.Patient confirms NPO status and agrees with scheduled surgery.MONITOR INTACT WITH CONTINUOUS PULSE OXIMETRY AND INTERMITTENT BP.O2 VIA N/C INTACT THROUGHOUT SEDATION/PROCEDURE. See Anesthesia record.
--- NOTE | 2021-01-17 18:29 | NUR ---
SUMMARY: Admit: /03/04 Colonoscopy scheduled for today @2pm. Dr Altamirano though she would discharge home later today. Patient would prefer to stay the night tonight after procedure.Discussed discharge planning, transition of care call. She has family at home to stay with her. Normally she is independant in all care. Discussed gabe call and schedule 1 week follow up appointment. Left gabe letter for her to take home. No care needs identified during visit. hammad
--- NOTE | 2021-01-17 18:37 | NUR ---
SHIFT SUMMARY: S/P COLONOSCOPY TODAY, TOLERATED WELL. APPETITE GOOD. C/O HEADACHE EARLIER, MEDICATED WITH TYLENOL, PAIN RELIEVED. POTASSIUM 2.7; REPLACED WITH 80 MEQ PO, BUT ASKED PT TO SPLIT THE DOSE OVER A FEW OF HOURS AND TO TAKE WITH FOOD. SHE IS REFUSING ANTICOAGULANTS AT THIS TIME. AMBULATING WITH CANE. LOOKING FORWARD TO D/C TOMORROW.
--- NOTE | 2021-01-18 06:14 | NUR ---
SHIFT SUMMARY LYING ON HER LEFT SIDE FACING THE WINDOW, HAS RESTED WELL THIS SHIFT. STATES THAT SHE CONTINUES TO FEEL BETTER. NO SIGNIFICANT CHANGES THIS SHIFT. PIV REMAINS PATENT, FLUSHING WITH EASE. DENIES PAIN, DISCOMFORT, OR FURTHER NEEDS AT THIS TIME. SAFETY MEASURES IN PLACE. WILL CONTINUE TO MONITOR AND ADDRESS NEEDS THEY ARISE. WILL GIVE HAND OFF TO ONCOMING SHIFT USING SBAR DURING BEDSIDE REPORT.
[2021-01-18 10:16] LABS: BASOPHILS ABSOLUTE AUTO 0.03 K/mm3 (0.00-0.23); BASOPHILS PERCENT AUTO 0 % (0-2); EOSINOPHILS ABSOLUTE AUTO 0.05 K/mm3 (0.00-0.68); EOSINOPHILS PERCENT AUTO 1 % (0-6); Hematocrit 29.8 % (33.0-51.0); IMMATURE GRAN ABSOLUTE AUTO 0.03 K/mm3 (0.00-0.10); IMMATURE GRAN PERCENT AUTO 0 % (0-1); LYMPHOCYTES ABSOLUTE AUTO 1.47 K/mm3 (0.84-5.20); LYMPHOCYTES PERCENT AUTO 20 % (21-46); MONOCYTES ABSOLUTE AUTO 0.94 K/mm3 (0.16-1.47); MONOCYTES PERCENT AUTO 13 % (4-13); Mean Corpuscular HGB 22.6 pg (26.0-34.0); Mean Corpuscular HGB Conc 30.2 g/dL (31.5-36.5); Mean Corpuscular Volume 75 fL (80-100); NEUTROPHILS ABSOLUTE AUTO 4.75 K/mm3 (1.96-9.15); NEUTROPHILS PERCENT AUTO 65 % (41-73); NRBC ABSOLUTE 0.04 K/mm3 (0.00-0.02); NRBC Auto 0.6 /100 WBC (0.0-0.2); Platelet Count 260 K/mm3 (150-400); RDW Coefficient Variation 22.1 % (11.7-14.2); RDW Standard Deviation 59.7 fL (35.1-46.3); Red Blood Cell Count 3.99 M/mm3 (3.80-5.20); White Blood Cell Count 7.27 K/mm3 (4.00-11.30)
[2021-01-18] MEDS ORDERED: Seroquel Xr50 MG PO (14:09)
[2021-01-18 14:23] LABS: Alanine Aminotransfer (ALT/SGP 20 U/L (12-78); Albumin/Globulin Ratio 0.8 (0.8-1.8); Alk Phos 120 U/L (50-136); Anion Gap 4 mmol/L (6-16); Aspartate Aminotrans (AST/SGOT 15 U/L (12-37); Bilirubin, Total 0.7 mg/dL (0.1-1.0); Blood Urea Nitrogen 24 mg/dL (8-24); CO2, Blood 31 mmol/L (21-32); Calcium, Blood 9.4 mg/dL (8.5-10.1); Chloride, Blood 105 mmol/L (98-108); Creatinine, Blood 0.86 mg/dL (0.40-1.00); Globulin, Blood 3.6 g/dL (2.2-4.0); Glomerular Filtration Rate >60 (60-); Glucose, Blood 144 mg/dL (70-99); Potassium, Blood 3.8 mmol/L (3.5-5.5); Sodium, Blood 140 mmol/L (136-145); Total Protein, Blood 6.6 g/dL (6.4-8.2)
--- NOTE | 2021-01-18 15:17 | NUR ---
DUE TO DISCREPANCY IN COMPUTER DISCHARGE PAPERWORK ( ADMIT MEDS WEREN'T RECONCILED WHEN PT ARRIVED), CALLED DR SIMMONS TO CLARIFY DISCHARGE MEDS. HE STATES THAT THE only NEW MEDS PT NEEDS TO BE ON ARE HYDROCHLOROTHIAZIE 25 MG DAILY LISINOPRIL 5MG DAILY EVENING FERROUS SULFATE 325MG BID PROTONIX CHANGED TO 40MG DAILY ALL OTHER MEDS I CALLED AND CANCELED FROM PHARMACY
[2021-01-18] MEDS ORDERED: FERSU300 PO (15:20)
[2021-01-18] MEDS ORDERED: HYDCHL25 PO (15:21)
[2021-01-18] MEDS ORDERED: LISI5 PO (15:21)
--- NOTE | 2021-01-18 16:35 | NUR ---
DISCHARGE SUMMARY DR SIMMONS CAME TO ROOM AROUND 330PM TO DISCUSS DISCHARGE MEDS. PIV REMOVED, PAPERWORK REVIEWED, MEDS FAXED TO [facility]. PCP APPT MADE FOR PT, CARDIOLOGY CALLED, THEY WLL CALL HER WITH APPT TIME AND DATE. SHE KNOWS TO GET HER CBC AND IRON LEVELS DRAWN IN 2 WEEKS. WHEELED DOWN TO HER CAR VIA WC WITH DAUGHTER.
== END 2021-01-18 16:23 | disposition home or self-care (01) | DRG 811 ==
LOC: MEDS 15:27 → ENPENDDIS 01-18 14:25 → MEDS 01-18 16:23
PROVIDERS: Internal Medicine Gastroenterology; ADMIT Internal Medicine
PROC: 30233N1 Transfusion of Nonautologous Red Blood Cells into Peripheral Vein, Percutaneous Approach (ICD-10-PCS; principal; 2021-01-15)
PROC: 0DJ08ZZ Inspection of Upper Intestinal Tract, Via Natural or Artificial Opening Endoscopic (ICD-10-PCS; 2021-01-16)
PROC: 0DBK8ZX Excision of Ascending Colon, Via Natural or Artificial Opening Endoscopic, Diagnostic (ICD-10-PCS; 2021-01-17)
PROC: 0DBN8ZX Excision of Sigmoid Colon, Via Natural or Artificial Opening Endoscopic, Diagnostic (ICD-10-PCS; 2021-01-17)
DX: D62 Acute posthemorrhagic anemia (principal); J96.20 Acute and chronic respiratory failure, unspecified whether with hypoxia or hypercapnia; I77.4 Celiac artery compression syndrome; Q21.1 Atrial septal defect; Z20.822 Contact with and (suspected) exposure to COVID-19; I48.91 Unspecified atrial fibrillation; K21.9 Gastro-esophageal reflux disease without esophagitis; F41.8 Other specified anxiety disorders; G47.33 Obstructive sleep apnea (adult) (pediatric); M81.0 Age-related osteoporosis without current pathological fracture; I10 Essential (primary) hypertension; E78.5 Hyperlipidemia, unspecified; I73.9 Peripheral vascular disease, unspecified; E87.70 Fluid overload, unspecified; K57.30 Diverticulosis of large intestine without perforation or abscess without bleeding; K64.8 Other hemorrhoids; K63.5 Polyp of colon; Z87.891 Personal history of nicotine dependence; Z95.820 Peripheral vascular angioplasty status with implants and grafts; Z99.81 Dependence on supplemental oxygen; Z88.8 Allergy status to other drugs, medicaments and biological substances; Z88.5 Allergy status to narcotic agent; Z86.010 Personal history of colon polyps; Z79.899 Other long term (current) drug therapy; Z79.01 Long term (current) use of anticoagulants; Z79.83 Long term (current) use of bisphosphonates; Z79.51 Long term (current) use of inhaled steroids
CPT/HCPCS: 0241U; 36415; 36430; 71045; 71046; 80048; 80053; 82728; 83540; 83550; 83735; 83880; 84443; 84484; 85014; 85018; 85025; 85045; 85379; 86850; 86900; 86901; 86923; 88305; 93306; 94760; A9270; G0378; J1940; J2704; J7120; P9016

== ENCOUNTER → 2021-08-18 | Outpatient (CLI) | payer OTHER ==
[~2021-08-18] MED LIST changes: +FERSU300 PO; +LISI5 PO
[2021-08-18 16:20] LABS: BASOPHILS ABSOLUTE AUTO 0.02 K/mm3 (0.00-0.23); BASOPHILS PERCENT AUTO 0 % (0-2); EOSINOPHILS ABSOLUTE AUTO 0.06 K/mm3 (0.00-0.68); EOSINOPHILS PERCENT AUTO 1 % (0-6); Hematocrit 44.7 % (33.0-51.0); Hemoglobin 14.7 g/dL (11.5-16.0); IMMATURE GRAN ABSOLUTE AUTO 0.02 K/mm3 (0.00-0.10); IMMATURE GRAN PERCENT AUTO 0 % (0-1); LYMPHOCYTES ABSOLUTE AUTO 1.82 K/mm3 (0.84-5.20); LYMPHOCYTES PERCENT AUTO 24 % (21-46); MONOCYTES ABSOLUTE AUTO 0.71 K/mm3 (0.16-1.47); MONOCYTES PERCENT AUTO 9 % (4-13); Mean Corpuscular HGB 27.3 pg (26.0-34.0); Mean Corpuscular HGB Conc 32.9 g/dL (31.5-36.5); Mean Corpuscular Volume 83 fL (80-100); Mean Platelet Volume 10.2 fL (9.1-12.4); NEUTROPHILS ABSOLUTE AUTO 4.92 K/mm3 (1.96-9.15); NEUTROPHILS PERCENT AUTO 65 % (41-73); Platelet Count 227 K/mm3 (150-400); RDW Coefficient Variation 18.9 % (11.7-14.2); RDW Standard Deviation 55.3 fL (35.1-46.3); Red Blood Cell Count 5.38 M/mm3 (3.80-5.20); White Blood Cell Count 7.55 K/mm3 (4.00-11.30)
[2021-08-18 16:30] LABS: Alanine Aminotransfer (ALT/SGP 32 U/L (12-78); Albumin, Blood 3.5 g/dL (3.4-5.0); Alk Phos 116 U/L (40-126); Anion Gap 9 mmol/L (6-16); Aspartate Aminotrans (AST/SGOT 18 U/L (12-37); Bilirubin, Total 0.9 mg/dL (0.1-1.0); Blood Urea Nitrogen 23 mg/dL (8-24); Bun/Creatinine Ratio 27.4 (12.0-20.0); CO2, Blood 30 mmol/L (21-32); Chloride, Blood 103 mmol/L (98-108); Creatinine, Blood 0.84 mg/dL (0.40-1.00); Globulin, Blood 3.6 g/dL (2.2-4.0); Glomerular Filtration Rate >60 (60-); Glucose, Blood 94 mg/dL (70-99); Potassium, Blood 4.1 mmol/L (3.5-5.5); Sodium, Blood 142 mmol/L (136-145); Total Protein, Blood 7.1 g/dL (6.4-8.2)
== END | disposition home or self-care (01) ==
LOC: LAB SHORT 16:15
PROVIDERS: Physician Assistant Medical
DX: R06.09 Other forms of dyspnea (principal)
CPT/HCPCS: 80053; 85025

== ENCOUNTER → 2021-10-01 | Outpatient (CLI) | payer OTHER | END | disposition home or self-care (01) | LOC: LAB SHORT 14:42 | DX: R32 Unspecified urinary incontinence (principal) | CPT/HCPCS: 87086 ==

== ENCOUNTER 2021-10-23 17:18 | Emergency (ER) | payer OTHER ==
[~2021-10-23] VITALS: Ht 157.5 cm; Wt 65.8 kg
[~2021-10-23 17:18] MED LIST changes: +ASCO500 PO; +CATAPRES0.2 M1 PO; +FLUO10 PO; +FURO40 PO; +Lopressor 50 mg50 MG PO; +Nitrostat0.3 MG SL; +OLME20 PO; +VITAMIN D5000 UNIT PO; +ZINC15
[2021-10-23 18:02] LABS: BASOPHILS ABSOLUTE AUTO 0.02 K/mm3 (0.00-0.23); BASOPHILS PERCENT AUTO 0 % (0-2); EOSINOPHILS ABSOLUTE AUTO 0.09 K/mm3 (0.00-0.68); EOSINOPHILS PERCENT AUTO 1 % (0-6); Hematocrit 46.6 % (33.0-51.0); Hemoglobin 15.1 g/dL (11.5-16.0); IMMATURE GRAN ABSOLUTE AUTO 0.01 K/mm3 (0.00-0.10); IMMATURE GRAN PERCENT AUTO 0 % (0-1); LYMPHOCYTES ABSOLUTE AUTO 2.18 K/mm3 (0.84-5.20); LYMPHOCYTES PERCENT AUTO 32 % (21-46); MONOCYTES ABSOLUTE AUTO 0.55 K/mm3 (0.16-1.47); MONOCYTES PERCENT AUTO 8 % (4-13); Mean Corpuscular HGB 28.1 pg (26.0-34.0); Mean Corpuscular HGB Conc 32.4 g/dL (31.5-36.5); Mean Corpuscular Volume 87 fL (80-100); Mean Platelet Volume 11.1 fL (9.1-12.4); NEUTROPHILS ABSOLUTE AUTO 3.93 K/mm3 (1.96-9.15); NEUTROPHILS PERCENT AUTO 58 % (41-73); Platelet Count 162 K/mm3 (150-400); RDW Coefficient Variation 15.9 % (11.7-14.2); RDW Standard Deviation 50.4 fL (35.1-46.3); Red Blood Cell Count 5.37 M/mm3 (3.80-5.20); White Blood Cell Count 6.78 K/mm3 (4.00-11.30)
[2021-10-23 18:12] LABS: Alanine Aminotransfer (ALT/SGP 23 U/L (12-78); Albumin, Blood 3.6 g/dL (3.4-5.0); Albumin/Globulin Ratio 0.9 (0.8-1.8); Alk Phos 104 U/L (50-136); Anion Gap 2 mmol/L (6-16); Aspartate Aminotrans (AST/SGOT 17 U/L (12-37); Bilirubin, Total 0.6 mg/dL (0.1-1.0); Blood Urea Nitrogen 15 mg/dL (8-24); Bun/Creatinine Ratio 20.1 (12.0-20.0); CO2, Blood 30 mmol/L (21-32); Calcium, Blood 9.1 mg/dL (8.5-10.1); Chloride, Blood 110 mmol/L (98-108); Creatinine, Blood 0.75 mg/dL (0.40-1.00); Globulin, Blood 3.8 g/dL (2.2-4.0); Glomerular Filtration Rate >60 (60-); Glucose, Blood 124 mg/dL (70-99); Potassium, Blood 3.5 mmol/L (3.5-5.5); Sodium, Blood 142 mmol/L (136-145); Total Protein, Blood 7.4 g/dL (6.4-8.2)
== END 2021-10-23 20:34 | disposition home or self-care (01) ==
LOC: ER 17:18
PROVIDERS: Physician Assistant
DX: I10 Essential (primary) hypertension (principal); R07.89 Other chest pain; J44.9 Chronic obstructive pulmonary disease, unspecified; I48.91 Unspecified atrial fibrillation; M19.90 Unspecified osteoarthritis, unspecified site; F17.200 Nicotine dependence, unspecified, uncomplicated; Z88.6 Allergy status to analgesic agent; Z88.5 Allergy status to narcotic agent; Z88.8 Allergy status to other drugs, medicaments and biological substances; Z79.899 Other long term (current) drug therapy
CPT/HCPCS: 36415; 71046; 80053; 84484; 85025; 93005; 93010; 96374; 99285-25; J3010

== ENCOUNTER → 2022-08-27 | Outpatient (CLI) | payer OTHER | END | disposition home or self-care (01) | LOC: LAB SHORT 16:05 | DX: N39.0 Urinary tract infection, site not specified (principal) | CPT/HCPCS: 87086 ==

== ENCOUNTER → 2023-07-01 | Outpatient (CLI) | payer MEDICARE, OTHER | END | disposition home or self-care (01) | LOC: LAB 12:00 → LAB SHORT 12:00 | DX: N39.0 Urinary tract infection, site not specified (principal) | CPT/HCPCS: 87086 ==

== ENCOUNTER 2023-09-09 11:37 | Day surgery (SDC) | payer MEDICARE, OTHER ==
[~2023-09-09] VITALS: Ht 157.5 cm; Wt 67.2 kg
[~2023-09-09 11:37] MED LIST changes: +ALBU90OI INH; +AMLO5 PO; +AZELASTINE137 MCG/06; +DOCU100 PO; +FLONASE ALLERG9.9 M2; +ISOSORBIDE MONO10 MG PO; +K-TAB ER20 ME1; +METO50 PO; +NITR.4SL; +OLMESARTAN MEDO40 MG PO; +PANTOPRAZOLE SO40 M2 PO; +SPIRIVA RESPIMAT4 G3 INH
[2023-09-09] MEDS ORDERED: ALBU2.5V5 (12:03)
[2023-09-09] MEDS ORDERED: BREO ELLIPTA 11 EAC1 IH ×2 (12:04→12:06)
[2023-09-09] MEDS ORDERED: TRAVOPROST2.5 ML (12:07)
[2023-09-09] MEDS ORDERED: CLOP75 PO (12:07)
[2023-09-09] MEDS ORDERED: FERRO-TIME325 MG (12:08)
[2023-09-09] MEDS ORDERED: TIZA4 PO (12:11)
--- NOTE | 2023-09-09 12:37 | NUR ---
09/09/23 [address] PHILLIPS, LAVERNEONEeRba ADMINISTERED IN PREOP.
[2023-09-09 14:33] VITALS: BP 124/74
--- NOTE | 2023-09-09 15:09 | NUR ---
09/09/23 1509 Naya Duggan PT HAS A FIB. HEART RATE TYPICALLY BOUNCES AROUND FROM 20S TO 80S. PT FEELS OK AND IS NOT EXPERIENCING ANY NEGATIVE EFFECTS. STATES NO PAIN, PRESSURE, DIZZINESS, OR SOB.
== END 2023-09-09 15:29 | disposition home or self-care (01) ==
LOC: ORSCSDS 11:37
PROVIDERS: Otolaryngology
PROC: 03BT0ZX Excision of Left Temporal Artery, Open Approach, Diagnostic (ICD-10-PCS; principal; 2023-09-09 13:00)
DX: M31.6 Other giant cell arteritis (principal); I48.91 Unspecified atrial fibrillation; Z79.01 Long term (current) use of anticoagulants
CPT/HCPCS: 88305; 88313; J2250; J7120

== ENCOUNTER 2024-02-24 20:52 | Inpatient (IN) | payer MEDICARE, OTHER ==
[~2024-02-24] VITALS: Ht 157.5 cm; Wt 70.9 kg
[~2024-02-24 20:52] MED LIST changes: +ALBU2.5V5; +BREO ELLIPTA 11 EAC1 IH; +FERRO-TIME325 MG; -K-TAB ER20 ME1; +K-TAB ER20 ME1 PO; +TIZA4 PO; +TRAVOPROST2.5 ML
[2024-02-24] MEDS ORDERED: Toprol Xl50 MG PO (21:20)
[2024-02-24] MEDS ORDERED: GABA300 PO (21:21)
[2024-02-24 21:24] LABS: BASOPHILS ABSOLUTE AUTO 0.04 K/mm3 (0.00-0.23); BASOPHILS PERCENT AUTO 1 % (0-2); EOSINOPHILS PERCENT AUTO 1 % (0-6); Hematocrit 23.8 % (33.0-51.0); Hemoglobin 6.9 g/dL (11.5-16.0); IMMATURE GRAN ABSOLUTE AUTO 0.03 K/mm3 (0.00-0.10); IMMATURE GRAN PERCENT AUTO 0 % (0-1); LYMPHOCYTES ABSOLUTE AUTO 2.12 K/mm3 (0.84-5.20); LYMPHOCYTES PERCENT AUTO 25 % (21-46); MONOCYTES ABSOLUTE AUTO 1.05 K/mm3 (0.16-1.47); MONOCYTES PERCENT AUTO 12 % (4-13); Mean Corpuscular HGB 26.5 pg (26.0-34.0); Mean Corpuscular Volume 92 fL (80-100); Mean Platelet Volume 10.3 fL (9.1-12.4); NEUTROPHILS ABSOLUTE AUTO 5.26 K/mm3 (1.96-9.15); NEUTROPHILS PERCENT AUTO 61 % (41-73); NRBC ABSOLUTE 0.18 K/mm3 (0.00-0.02); NRBC Auto 2.1 /100 WBC (0.0-0.2); Platelet Count 266 K/mm3 (150-400); RDW Coefficient Variation 20.7 % (11.7-14.2); RDW Standard Deviation 65.9 fL (35.1-46.3)
[2024-02-24 21:42] LABS: Albumin, Blood 3.1 g/dL (3.4-5.0); Albumin/Globulin Ratio 0.9 (0.8-1.8); Bilirubin, Total 0.5 mg/dL (0.1-1.0); Bun/Creatinine Ratio 29.5 (12.0-20.0); Calcium, Blood 8.9 mg/dL (8.5-10.1); Creatinine, Blood 0.95 mg/dL (0.40-1.00); Globulin, Blood 3.3 g/dL (2.2-4.0); Potassium, Blood 3.9 mmol/L (3.5-5.5); Total Protein, Blood 6.4 g/dL (6.4-8.2)
[2024-02-24] MEDS ORDERED: Albuterol 2.5 MG/3 ML VIAL INH SCH (21:55)
[2024-02-24] MEDS ORDERED: PredniSONE 20 MG Tab PO ONE (21:55)
[2024-02-24] MEDS ORDERED: NS 1,000 ML IV ONE (22:18)
[2024-02-24] MEDS ORDERED: NS 1,000 ML IV SCH (22:40)
[2024-02-25] VITALS (11 sets, daily range): BP systolic 106–152; BP diastolic 44–92
[2024-02-25] MEDS ORDERED: Acetaminophen 325 MG TABLET PO PRN (00:40)
[2024-02-25] MEDS ORDERED: Furosemide 10 MG / ML 2ML Vial IV ONE (01:00)
--- NOTE | 2024-02-25 01:45 | NUR ---
ASSUMPTION OF CARE PT ARRIVED TO PCU 9 AT APPROXIMATELY 0145 VIA GURNEY, PT SLID TO HOSPITAL BED. SPO2 >93% ON 3L NC, LUNGS WITH EXPIRATORY WHEEZES T/O. SECOND UNIT OF PRBC INFUSING AT 100ML/HR. VSS, AFEBTRILE. ADMISSION HISTORY/ ASSESSMENT COMPLETED. PT IS NOW RESTING COMFORTABLY, CALL LIGHT WITHIN REACH, BREATHING EVEN AND UNLABORED.
[2024-02-25] MEDS ORDERED: ASPI81CH PO (02:08)
[2024-02-25] MEDS ORDERED: Ipratropium/Albuterol SulF 2.5-0.5MG/3 ML Amp INH SCH (03:20)
[2024-02-25 05:55] LABS: BASOPHILS ABSOLUTE AUTO 0.02 K/mm3 (0.00-0.23); BASOPHILS PERCENT AUTO 0 % (0-2); EOSINOPHILS ABSOLUTE AUTO 0.01 K/mm3 (0.00-0.68); EOSINOPHILS PERCENT AUTO 0 % (0-6); Hematocrit 30.5 % (33.0-51.0); Hemoglobin 9.5 g/dL (11.5-16.0); IMMATURE GRAN ABSOLUTE AUTO 0.05 K/mm3 (0.00-0.10); IMMATURE GRAN PERCENT AUTO 1 % (0-1); LYMPHOCYTES ABSOLUTE AUTO 0.65 K/mm3 (0.84-5.20); LYMPHOCYTES PERCENT AUTO 9 % (21-46); MONOCYTES ABSOLUTE AUTO 0.13 K/mm3 (0.16-1.47); MONOCYTES PERCENT AUTO 2 % (4-13); Mean Corpuscular HGB 26.5 pg (26.0-34.0); Mean Corpuscular HGB Conc 31.1 g/dL (31.5-36.5); Mean Platelet Volume 10.1 fL (9.1-12.4); NEUTROPHILS PERCENT AUTO 88 % (41-73); NRBC ABSOLUTE 0.12 K/mm3 (0.00-0.02); NRBC Auto 1.7 /100 WBC (0.0-0.2); Platelet Count 231 K/mm3 (150-400); RDW Coefficient Variation 20.3 % (11.7-14.2); RDW Standard Deviation 58.1 fL (35.1-46.3); Red Blood Cell Count 3.59 M/mm3 (3.80-5.20); White Blood Cell Count 6.96 K/mm3 (4.00-11.30)
--- NOTE | 2024-02-25 05:55 | NUR ---
SHIFT SUMMARY NO ACUTE CHANGES SINCE ASSUMPTION OF CARE. SECOND UNIT OF PRBC FINISHED AT APPROXIMATELY 0425, VSS, AFEBRILE, WHEEZES T/O LUNGS WHICH IS STABLE FROM PREVIOUS. PT DENIES CP OR WORSENING SOB. PT IS RESTING COMFORTABLY, CALL LIGHT WITHIN REACH, BREATHING EVEN AND UNLABORED.
[2024-02-25 05:56] LABS: Mean Corpuscular Volume 85 fL (80-100)
[2024-02-25] MEDS ORDERED: Pantoprazole Sodium 40 MG Injection IV SCH (06:00)
[2024-02-25 06:17] LABS: Albumin, Blood 3.3 g/dL (3.4-5.0); Albumin/Globulin Ratio 0.9 (0.8-1.8); Bilirubin, Total 0.9 mg/dL (0.1-1.0); Bun/Creatinine Ratio 33.6 (12.0-20.0); Calcium, Blood 8.4 mg/dL (8.5-10.1); Creatinine, Blood 0.69 mg/dL (0.40-1.00); Globulin, Blood 3.5 g/dL (2.2-4.0); Potassium, Blood 3.7 mmol/L (3.5-5.5); Total Protein, Blood 6.8 g/dL (6.4-8.2)
[2024-02-25] MEDS ORDERED: Docusate Sodium 100 MG Cap PO PRN (07:30)
[2024-02-25] MEDS ORDERED: Mometasone/Formoterol MDI 100/5 mcg 13 GM INH SCH (07:35)
[2024-02-25] MEDS ORDERED: FLUoxetine HCl 10 MG Cap PO SCH (09:00)
[2024-02-25] MEDS ORDERED: Atorvastatin 10 MG Tab PO SCH (09:00)
[2024-02-25] MEDS ORDERED: Azelastine 0.1% Nasal Spray SCH (09:00)
[2024-02-25] MEDS ORDERED: Azithromycin 500 MG in NS 250 ML IV SCH (09:00)
[2024-02-25] MEDS ORDERED: MethylPREDNISolone Sod Succ 125 MG Vial IV SCH (09:00)
[2024-02-25] MEDS ORDERED: Gabapentin 300 MG Cap PO SCH (09:00)
[2024-02-25] MEDS ORDERED: Enoxaparin 40 MG/0.4 ML SYR SC SCH (09:00)
[2024-02-25] MEDS ORDERED: Rivaroxaban 10 MG Tab PO SCH (09:00)
[2024-02-25 14:21] LABS: BASOPHILS ABSOLUTE AUTO 0.01 K/mm3 (0.00-0.23); BASOPHILS PERCENT AUTO 0 % (0-2); EOSINOPHILS PERCENT AUTO 0 % (0-6); Hematocrit 28.4 % (33.0-51.0); Hemoglobin 8.9 g/dL (11.5-16.0); IMMATURE GRAN ABSOLUTE AUTO 0.03 K/mm3 (0.00-0.10); IMMATURE GRAN PERCENT AUTO 1 % (0-1); LYMPHOCYTES ABSOLUTE AUTO 0.68 K/mm3 (0.84-5.20); LYMPHOCYTES PERCENT AUTO 13 % (21-46); MONOCYTES ABSOLUTE AUTO 0.04 K/mm3 (0.16-1.47); MONOCYTES PERCENT AUTO 1 % (4-13); Mean Corpuscular HGB Conc 31.3 g/dL (31.5-36.5); Mean Corpuscular Volume 86 fL (80-100); Mean Platelet Volume 10.1 fL (9.1-12.4); NEUTROPHILS ABSOLUTE AUTO 4.47 K/mm3 (1.96-9.15); NEUTROPHILS PERCENT AUTO 85 % (41-73); NRBC ABSOLUTE 0.11 K/mm3 (0.00-0.02); NRBC Auto 2.1 /100 WBC (0.0-0.2); Platelet Count 208 K/mm3 (150-400); RDW Coefficient Variation 21.2 % (11.7-14.2); RDW Standard Deviation 62.3 fL (35.1-46.3); White Blood Cell Count 5.23 K/mm3 (4.00-11.30)
--- NOTE | 2024-02-25 18:42 | NUR ---
SHIFT SUMMARY; ASSUMED CARE AT 0700, A/A/OX4, REPOSITIONS SELF ON BED, AMBULATES TO RESTROOM WTIH CANE AND SBA. NO BLOODY STOOL OBSERVED DURING SHIFT. VSS, PLEASANT AND COOPERATIVE WITH CARE. WILL CONTINUE TO MONITOR AND TREAT UNTIL CHANGE OF SHIFT.
[2024-02-26] VITALS (7 sets, daily range): BP systolic 99–147; BP diastolic 55–77
--- NOTE | 2024-02-26 04:40 | NUR ---
SHIFT SUMMARY PT A&O X4, ABLE TO MAKE NEEDS KNOWN, COOPERATIVE WITH CARE. VSS, AFEBRILE, LUNGS WITH MILD WHEEZES IN THE BASES. NO TARRY STOOLS OR BLOOD PER RECTUM THIS SHIFT. PT DENIES CP OR WORSENING SOB. SPO2 >95% ON 3L NC. PT IS RESTING COMFORTABLY, CALL LIGHT WITHIN REACH, BREATHING EVEN AND UNLABORED.
[2024-02-26 04:45] LABS: BASOPHILS PERCENT AUTO 0 % (0-2); EOSINOPHILS PERCENT AUTO 0 % (0-6); Hematocrit 27.9 % (33.0-51.0); Hemoglobin 8.5 g/dL (11.5-16.0); IMMATURE GRAN ABSOLUTE AUTO 0.03 K/mm3 (0.00-0.10); IMMATURE GRAN PERCENT AUTO 0 % (0-1); LYMPHOCYTES ABSOLUTE AUTO 0.46 K/mm3 (0.84-5.20); LYMPHOCYTES PERCENT AUTO 6 % (21-46); MONOCYTES ABSOLUTE AUTO 0.13 K/mm3 (0.16-1.47); MONOCYTES PERCENT AUTO 2 % (4-13); Mean Corpuscular HGB 26.2 pg (26.0-34.0); Mean Corpuscular HGB Conc 30.5 g/dL (31.5-36.5); Mean Corpuscular Volume 86 fL (80-100); Mean Platelet Volume 9.7 fL (9.1-12.4); NEUTROPHILS PERCENT AUTO 92 % (41-73); NRBC ABSOLUTE 0.05 K/mm3 (0.00-0.02); NRBC Auto 0.7 /100 WBC (0.0-0.2); Platelet Count 184 K/mm3 (150-400); RDW Coefficient Variation 21.2 % (11.7-14.2); RDW Standard Deviation 64.5 fL (35.1-46.3); Red Blood Cell Count 3.24 M/mm3 (3.80-5.20); White Blood Cell Count 7.62 K/mm3 (4.00-11.30)
[2024-02-26 05:14] LABS: Albumin, Blood 2.9 g/dL (3.4-5.0); Anion Gap 9 mmol/L (3-11); Blood Urea Nitrogen 14 mg/dL (8-24); Bun/Creatinine Ratio 24.1 (12.0-20.0); CO2, Blood 27 mmol/L (21-32); Calcium, Blood 8.4 mg/dL (8.5-10.1); Chloride, Blood 109 mmol/L (98-108); Creatinine, Blood 0.58 mg/dL (0.40-1.00); Glomerular Filtration Rate 91 (60-); Glucose, Blood 174 mg/dL (70-99); Magnesium, Blood 2.1 mg/dL (1.6-2.4); Phosphorus, Blood 2.8 mg/dL (2.5-4.9); Potassium, Blood 3.7 mmol/L (3.5-5.5); Sodium, Blood 141 mmol/L (136-145)
[2024-02-26] MEDS ORDERED: Losartan Potassium 50 MG Tab PO SCH (09:00)
[2024-02-26] MEDS ORDERED: Metoprolol Succinate 50 MG TABCR PO SCH (09:00)
--- NOTE | 2024-02-26 10:30 | NUR ---
PT'S IV IRRITATED HEAVILY BY AZITHROMYCIN, STOPPED THE INFUSION. WILL CHANGE TO ORAL TABLETS. ICE PACK GIVEN WITH GOOD RELIEF.
--- NOTE | 2024-02-26 12:14 | NUR ---
JUSTYNA WAS UP TO THE BATHROOM, SHE HAD TAKEN OFF HER MONITORS, WHEN SHE RETURNED TO HER CHAIR, DAUGHTER ASKED TO SEE HOW SHE WAS DOING WITHOUT HER OXYGEN. HER SATURATIONS WERE 88-89% ON ROOM AIR. WHICH THE DAUGHTER WAS HAPPY WITH. SHE RETURNED HER OXYGEN TO HER NOSE.
--- NOTE | 2024-02-26 18:31 | NUR ---
JUSTYNA HAS BEEN ABLE TO GET UP AND AMBULATE ABOUT THE HALLWAYS, USING HER OXYGEN. SHE SAID IT MADE HER FEEL GOOD. SHE DID HAVE AN EPISODE OF PAIN WHILE UP TO THE RESTROOM WITHOUT HER OXYGEN. SHE DEVELOPED PAIN MID CHEST THROUGH TO HER BACK, SHE WAS ABLE TO PUT HER OXYGEN BACK ON AND THE PAIN WENT AWAY. HER VITALS WERE STABLE AND NO FURTHER SEQUELAE. IV IN LEFT FOREARM PAINFUL WITH THE AZITHROMYCIN, CHANGED TO ORAL, TOLERATED OTHER IV MEDS THROUGH THE SITE. DRESSING CHANGED. DAUGHTERS TO VISIT TODAY. PT DENIES ANY ABDOMINAL PAIN OR EVIDENCE OF BLEEDING. SHE IS PRESCRIBED MIRALAX TO HELP PASS STOOL. NO FURTHER CHANGES.
[2024-02-26] MEDS ORDERED: MethylPREDNISolone Sod Succ 125 MG Vial IV SCH (21:00)
[2024-02-26] MEDS ORDERED: Gabapentin 400 MG Cap PO SCH (21:00)
[2024-02-26] MEDS ORDERED: Polyethylene Glycol 3350 17 gm PO SCH (21:00)
[2024-02-27 03:18] VITALS: BP 119/68
[2024-02-27 03:46] LABS: BASOPHILS ABSOLUTE AUTO 0.01 K/mm3 (0.00-0.23); BASOPHILS PERCENT AUTO 0 % (0-2); EOSINOPHILS PERCENT AUTO 0 % (0-6); Hematocrit 29.6 % (33.0-51.0); Hemoglobin 8.9 g/dL (11.5-16.0); IMMATURE GRAN ABSOLUTE AUTO 0.09 K/mm3 (0.00-0.10); IMMATURE GRAN PERCENT AUTO 1 % (0-1); LYMPHOCYTES ABSOLUTE AUTO 0.38 K/mm3 (0.84-5.20); LYMPHOCYTES PERCENT AUTO 3 % (21-46); MONOCYTES PERCENT AUTO 2 % (4-13); Mean Corpuscular HGB 25.9 pg (26.0-34.0); Mean Corpuscular HGB Conc 30.1 g/dL (31.5-36.5); Mean Corpuscular Volume 86 fL (80-100); Mean Platelet Volume 10.2 fL (9.1-12.4); NEUTROPHILS ABSOLUTE AUTO 13.73 K/mm3 (1.96-9.15); NEUTROPHILS PERCENT AUTO 95 % (41-73); NRBC ABSOLUTE 0.05 K/mm3 (0.00-0.02); NRBC Auto 0.3 /100 WBC (0.0-0.2); Platelet Count 216 K/mm3 (150-400); RDW Standard Deviation 65.2 fL (35.1-46.3); Red Blood Cell Count 3.43 M/mm3 (3.80-5.20); White Blood Cell Count 14.51 K/mm3 (4.00-11.30)
[2024-02-27 04:20] LABS: Albumin, Blood 3.1 g/dL (3.4-5.0); Anion Gap 8 mmol/L (3-11); Blood Urea Nitrogen 20 mg/dL (8-24); Bun/Creatinine Ratio 30.4 (12.0-20.0); CO2, Blood 27 mmol/L (21-32); Calcium, Blood 8.9 mg/dL (8.5-10.1); Chloride, Blood 108 mmol/L (98-108); Creatinine, Blood 0.66 mg/dL (0.40-1.00); Glomerular Filtration Rate 88 (60-); Glucose, Blood 141 mg/dL (70-99); Phosphorus, Blood 2.8 mg/dL (2.5-4.9); Potassium, Blood 4.5 mmol/L (3.5-5.5); Sodium, Blood 138 mmol/L (136-145)
--- NOTE | 2024-02-27 05:25 | NUR ---
SHIFT SUMMARY PT A&O X4, ABLE TO MAKE NEEDS KNOWN, COOPERATIVE WITH CARE. VSS, AFEBRILE, LUNGS CLEAR BUT DIMINISHED. PT WALKED AROUND UNIT WITH FAMILY MEMBERS AT BEGINNING OF SHIFT WITH NO O2, PT ABLE TO MAINTAIN O2 >92%. PT REPORTS FEELING MUCH BETTER TODAY. STILL NO TARRY STOOLS OR BLOOD PER RECTUM THIS SHIFT. PT DENIES CP OR WORSENING SOB. PT IS RESTING COMFORTABLY, CALL LIGHT WITHIN REACH, BREATHING EVEN AND UNLABORED.
[2024-02-27 08:20] VITALS: BP 106/77
[2024-02-27] MEDS ORDERED: Polyethylene Glycol 3350 17 gm PO ONE (08:45)
[2024-02-27] MEDS ORDERED: Furosemide 10 MG / ML 2ML Vial IV SCH (09:00)
[2024-02-27] MEDS ORDERED: Azithromycin 250 MG Tab PO SCH (09:00)
[2024-02-27] MEDS ORDERED: PANT40 PO (10:10)
[2024-02-27] MEDS ORDERED: AZIT250 PO (10:11)
[2024-02-27] MEDS ORDERED: MIRALAX17 GM PO (10:12)
[2024-02-27] MEDS ORDERED: PRED20 PO (10:12)
[2024-02-27] MEDS ORDERED: AMOCLA875 PO (10:14)
--- NOTE | 2024-02-27 11:06 | NUR ---
DISCHARGE NOTE: ASSUMED CARE OF PT AT 0700 THIS AM. PT HAS NO COMPLAINTS OR CONCERNS, EAGER TO GO HOME. SEE DOCUMENTED VS AND ASSESSMENT. DR WEATHERS IN TO SEE PT THIS AM AND DISCHARGE ORDERS PLACED. NEW MEDICATION PRESCRIPTIONS FAXED TO [facility] PER PT REQUEST. PT'S DTR IN ROOM FOR DISCHARGE TEACHING WELL. PT IS INSTRUCTED BY DR WEATHERS TO HOLD HER BLOOD THINNING MEDICATIONS UNTIL SHE IS EVALUATED BY HER VASCULAR SURGEON. SHE HAS A VASCULAR PROCEDURE SCHEDULED FOR 03/03, PER HER REPORT. IV TO L HAND REMOVED W/O ANY COMPLICATIONS NOTED. PT AND FAMILY HAVE NO FURTHER DISCHARGE QUESTIONS OR CONCERNS AT THIS TIME. PT DISCHARGED HOME IN THE CARE OF HER DTR AT 1045 WITH ALL BELONGINGS. NO FURTHER DISCHARGE NEEDS IDENTIFIED AT THIS TIME.
== END 2024-02-27 10:50 | disposition home or self-care (01) | DRG 811 ==
LOC: ER 20:52 → PCU 02-25 00:39
PROVIDERS: Emergency Medicine; Family Medicine; Family Medicine Adult Medicine; ADMIT Student in an Organized Health Care Education/Training Program
PROC: 30233N1 Transfusion of Nonautologous Red Blood Cells into Peripheral Vein, Percutaneous Approach (ICD-10-PCS; principal; 2024-02-25)
DX: D62 Acute posthemorrhagic anemia (principal); J96.21 Acute and chronic respiratory failure with hypoxia; J44.1 Chronic obstructive pulmonary disease with (acute) exacerbation; M19.90 Unspecified osteoarthritis, unspecified site; M79.7 Fibromyalgia; I73.9 Peripheral vascular disease, unspecified; J44.9 Chronic obstructive pulmonary disease, unspecified; E78.5 Hyperlipidemia, unspecified; G47.33 Obstructive sleep apnea (adult) (pediatric); F17.210 Nicotine dependence, cigarettes, uncomplicated; I48.91 Unspecified atrial fibrillation; I11.0 Hypertensive heart disease with heart failure; I50.9 Heart failure, unspecified; T45.515A Adverse effect of anticoagulants, initial encounter; J43.9 Emphysema, unspecified; D64.9 Anemia, unspecified; I25.10 Atherosclerotic heart disease of native coronary artery without angina pectoris; J84.10 Pulmonary fibrosis, unspecified; K21.9 Gastro-esophageal reflux disease without esophagitis; Z79.01 Long term (current) use of anticoagulants; M81.0 Age-related osteoporosis without current pathological fracture; Z85.41 Personal history of malignant neoplasm of cervix uteri; Z90.49 Acquired absence of other specified parts of digestive tract
CPT/HCPCS: 36415; 36430; 71046; 74177; 80053; 80069; 82272; 83735; 83880; 85025; 86850; 86900; 86901; 86923; 93005; 93010; 94640; 94644; 94664; 94762; 99285-25; A9270; C9113; J0456; J1940; J2919; J7030; J7050; J7512; P9016; Q9967

== ENCOUNTER 2024-10-18 10:23 | Emergency (ER) | payer MEDICARE, OTHER ==
[~2024-10-18] VITALS: Ht 170.2 cm; Wt 74.8 kg
[~2024-10-18 10:23] MED LIST changes: +AMOCLA875 PO; +ASPI81CH PO; +AZIT250 PO; +MIRALAX17 GM PO; +Toprol Xl50 MG PO
[2024-10-18 10:52] LABS: BASOPHILS ABSOLUTE AUTO 0.02 K/mm3 (0.00-0.23); BASOPHILS PERCENT AUTO 1 % (0-2); EOSINOPHILS ABSOLUTE AUTO 0.06 K/mm3 (0.00-0.68); EOSINOPHILS PERCENT AUTO 2 % (0-6); Hematocrit 44.9 % (33.0-51.0); Hemoglobin 15.2 g/dL (11.5-16.0); IMMATURE GRAN ABSOLUTE AUTO 0.01 K/mm3 (0.00-0.10); IMMATURE GRAN PERCENT AUTO 0 % (0-1); LYMPHOCYTES PERCENT AUTO 24 % (21-46); MONOCYTES ABSOLUTE AUTO 0.52 K/mm3 (0.16-1.47); MONOCYTES PERCENT AUTO 14 % (4-13); Mean Corpuscular HGB 29.5 pg (26.0-34.0); Mean Corpuscular HGB Conc 33.9 g/dL (31.5-36.5); Mean Corpuscular Volume 87 fL (80-100); Mean Platelet Volume 10.3 fL (9.1-12.4); NEUTROPHILS ABSOLUTE AUTO 2.25 K/mm3 (1.96-9.15); NEUTROPHILS PERCENT AUTO 60 % (41-73); Platelet Count 151 K/mm3 (150-400); RDW Coefficient Variation 14.6 % (11.7-14.2); RDW Standard Deviation 47.2 fL (35.1-46.3); Red Blood Cell Count 5.16 M/mm3 (3.80-5.20); White Blood Cell Count 3.76 K/mm3 (4.00-11.30)
[2024-10-18 11:10] LABS: Albumin, Blood 3.2 g/dL (3.4-5.0); Albumin/Globulin Ratio 0.9 (0.8-1.8); Bilirubin, Total 0.4 mg/dL (0.1-1.0); Bun/Creatinine Ratio 19.9 (12.0-20.0); Creatinine, Blood 0.6 mg/dL (0.40-1.00); Globulin, Blood 3.6 g/dL (2.2-4.0); Magnesium, Blood 2.1 mg/dL (1.6-2.4); Potassium, Blood 4.1 mmol/L (3.5-5.5); Total Protein, Blood 6.8 g/dL (6.4-8.2)
[2024-10-18] MEDS ORDERED: MethylPREDNISolone Sod Succ 125 MG Vial IV ONE (12:10)
[2024-10-18] MEDS ORDERED: Azithromycin 250 MG Tab PO ONE (12:10)
[2024-10-18] MEDS ORDERED: Albuterol 2.5 MG/3 ML VIAL INH ONE (12:25)
[2024-10-18 12:38] LABS: Influenza A, PCR NEGATIVE (NEGATIVE); Influenza B, PCR NEGATIVE (NEGATIVE); Resp Syncytial Virus, PCR NEGATIVE (NEGATIVE); SARS-Cov-2 (COVID-19) PCR, MMC NEGATIVE (NEGATIVE)
[2024-10-18] MEDS ORDERED: DELTASONE20 MG PO (12:58)
[2024-10-18] MEDS ORDERED: AZIT250 PO (12:58)
[2024-10-18 13:00] VITALS: BP 122/95
== END 2024-10-18 13:58 | disposition home or self-care (01) ==
LOC: ER 10:23
PROVIDERS: Emergency Medicine
DX: J44.1 Chronic obstructive pulmonary disease with (acute) exacerbation (principal); I11.0 Hypertensive heart disease with heart failure; I50.9 Heart failure, unspecified; E78.5 Hyperlipidemia, unspecified; G47.33 Obstructive sleep apnea (adult) (pediatric); F17.210 Nicotine dependence, cigarettes, uncomplicated; Z88.6 Allergy status to analgesic agent; Z88.8 Allergy status to other drugs, medicaments and biological substances; Z88.5 Allergy status to narcotic agent; Z79.899 Other long term (current) drug therapy
CPT/HCPCS: 0241U; 71045; 80053; 83735; 83880; 84484; 85025; 86850; 86900; 86901; 93005; 93010; 94640; 94664; 96374; 99285-25; A9270; J2919